=== PATIENT | male | born 1980 | race Caucasian/White ===

== ENCOUNTER 2021-03-31 15:22 | Inpatient (IN) | payer BC, SELFPAY ==
[2021-03-31] VITALS (11 sets, daily range): BP systolic 109–158; BP diastolic 53–107; PULSE 67–106; RESP 12–25; TEMP 36.6–37.3; O2SAT 97–100; BMI 30.7
[2021-03-31 15:57] LABS: Abs Immature Grans 0.06 10^3/uL (0.0-0.06); Absolute Eosinophil Count 0.03 10^3/uL (0.0-0.7); Absolute Lymphocyte Count 0.91 10^3/uL (1.2-3.4); Basophils % 0.3; Eosinophils % 0.2; HCT 48.8 % (40.0-50.0); HGB 17.2 g/dL (13.5-17.5); Immature Grans % 0.4; MCH 30.7 pg (27.0-33.0); MCHC 35.2 % (32.0-36.0); MPV 10.9 fL (8.0-11.0); Monocytes % 4.6; Neutrophils % 88.5; Nucleated RBC 0 %; Platelet Count 219 10^3/uL (130-400); RBC 5.61 10^6/uL (4.36-5.78); RDW 11.8 % (11.8-14.1); RDW-SD 37.3 fL; WBC 15.14 10^3/uL (4.4-10.8)
[2021-03-31 15:58] LABS: Absolute Basophil Count 0.05 10^3/uL (0.0-0.2)
[2021-03-31 15:58] LABS: Bilirubin Small (Negative); Blood Negative (Negative); Clarity Clear (Clear); Glucose Negative (Negative); Ketones >=160 mg/dL (Negative); Leukocyte Esterase Negative (Negative); Nitrite Negative (Negative); Specific Gravity >= 1.030 (1.005-1.025); Urobilinogen 0.2 EU/dL (Up TO 0.2)
--- NOTE | 2021-03-31 16:00 | DI.CT_ITS ---
Exam(s) CT ABDOMEN PELVIS W EXAM: CT ABDOMEN PELVIS W CLINICAL HISTORY: RLQ pain. TECHNIQUE: Imaging Protocol: Axial computed tomography images with coronal and sagittal reformatted images were created and reviewed CONTRAST MATERIAL: Intravenous: Omnipaque 100cc Oral: None COMPARISON: No exams were available for comparison FINDINGS: VISUALIZED LUNG BASES: No nodules nor pleural effusions evident. ABDOMEN: There is no ascites. LIVER: There are no focal hepatic lesions evident . GALLBLADDER/BILIARY: No obvious gallbladder pathology. CBD is not dilated. PANCREAS: No evidence of pancreatic mass nor dilatation of the pancreatic duct. SPLEEN: Spleen is not enlarged. No obvious intrasplenic lesions. Splenic and portal veins are paten t. ADRENALS: There are no significant adrenal masses. KIDNEYS:There is an exophytic cyst off the lateral cortex of the right kidney measuring 1.5 x 1.5 cm. No other significant focal renal findings. No solid renal masses. No calculi nor hydronephrosis.. ABDOMINAL AORTA: Abdominal aorta is not enlarged. LYMPH NODES:There is no retroperitineal nor paraaortic adenopathy. ABDOMINAL WALL: No evidence of significant anterior abdominal wall hernia. GI: There is no evidence of bowel obstruction, free air, nor abscess. However, the transverse colon appears to exhibit possible colitis pattern. PELVIS: GI: The appendix is abnormal. There is an appendicular lith at the junction with the cecum and the a ppendix is distended to a diameter of 12 millimeters.There is mild streaking. There is no abscess. No free air. LYMPH NODES: There is no intrapelvic nor inguinal adenopathy. REPRODUCTIVE: Prostate size upper normal. URINARY BLADDER: No calculi nor obvious masses evident OSSEOUS: No significant osseous lesions. IMPRESSION: 1. Findings are consistent with acute appendicitis. No obvious perforation or abscess at this time. 2. Appearance of the colon may reflect a colitis pattern. However, this appearance can be exaggerate d by the fact that there is no intraluminal oral contrast within the colon. Study 1st read by [facility] RADIATION DOSE DELIVERED: 845.4mGy.cm Total DLP DATA REPOSITORY: All CT scans at this facility are submitted to the National Radiology Data Registry (NRDR) Dose Index Registry (DIR) with the [employer] (A[employer]). RADIATION OPTIMIZATION: All CT scans at this facility use at least one of these dose optimization te chniques: automated exposure control; mA and/or kV adjustment per patient size (includes targeted exa ms where dose is matched to clinical indication); or iterative reconstruction.
--- NOTE | 2021-03-31 16:01 | W.ED.GENAD ---
Discharge Plan Disposition Patient Disposition: [facility] INPATIENT Condition: Stable Discharge Details Chief Complaint: Abd Prob Clinical Impression: Appendicitis Primary Care Provider: Richard Worley ED Provider: Maryanne Birmingham Home Meds and New Rx's Prescriptions: No Action No Known Home Meds RF: 0 Medical Decision Making Patient is a pleasant 40 year old male presenting with c/c of abdominal pain. Pain began around 0900 and has progressively increased. Diminished appetite. No N/V. Temp of 100*F at noon. Took APAP at 1100 without relief. Pepto without relief. No previous abdonimal surgeries. Loose BM today x 1. No change in urinary habits, denies back pain, no testicular pain. On exam, patient appears non toxic. He indicates umbilical area as area of maximal tenderness but pain is elicited over RLQ. Specifically over McBurney's point. Mild discomfort with psoas sign. No CVA tenderness. Concern for appendicitis. Also considered diverticulitis, muscular pain, kidney stone, UTI. Patient is lactointolerent. Had mild products on Tuesday, loose BM Tuesday, this could be residual. Will obtain labs and CT. He declines analgesics at this time. Contacted by radiologist, patient has acute appendicitis. Will contact management professional surgery. Labs significant for white count of 15. Creatinine is elevated at 1.4. No previous for comparison. Patient is receiving hydration. Urinalysis significant for elevated specific gravity and ketones. Patient reports his pain is increasing, will give IV morphine. Discussed these concerns with the patient. Spoke with Dr. Umaña who will come evaluate the patient plan for definitive management of acute appendicitis. Patient reports feeling improved after IV morphine. Patient brought to the OR suite for emergent appendectomy. Patient received IV antibiotics prior to surgical intervention. Patient stable condition HPI General Mode of arrival: ambulatory. Date/Time Provider Initiated Documentation: 03/31/21 15:39. Limitations to Documentation: no limitations. Information obtained by: patient and RN notes reviewed. History of Present Illness 40 year old M presents to the emergency department with the chief complaint of abdominal pain, described as moderate, with intensity rated at 5. Quality is described as aching, and is localized to the abdomen. Patient reports no radiation. Patient started experiencing this hour(s) and it has been constant. No relieving factors improve symptom(s), No exacerbating factors reported . Patient notes diaphoresis, fever/chills (t max 100) and loss of appetite; denies chest pain, cough, headaches, nausea/vomiting, rash, shortness of breath and weakness. Patient did receive the following treatments prior to arrival, other (tylenol) Related Data Home Medications Medication Instructions Recorded Confirmed Unknown [No Known Home Meds] 05/21/20 03/31/21 Allergies Allergy/AdvReac Type Severity Reaction Status Date / Time No Known Allergies Allergy Unverified 03/31/21 15:37 General Stated Complaint: Abd Prob MANGO: 3 Review of Systems Constitutional Constitutional: Reports as per HPI, Denies chills, Denies fatigue, Denies fever(s) and Denies headache(s) ENT Ears, Nose, Mouth, and Throat: Denies headache(s) Cardiovascular Cardiovascular: Reports as per HPI, Denies chest pain and Denies dyspnea Respiratory Respiratory: Reports as per HPI, Denies cough and Denies dyspnea Gastrointestinal Gastrointestinal: Reports as per HPI Genitourinary Genitourinary: Denies system reviewed and no additional complaints, except as documented (patient denies any change in urinary habits) Musculoskeletal Musculoskeletal: Reports as per HPI and Denies back pain Integumentary/Breasts Skin/Breast: Reports as per HPI and Denies rash Neurologic Neurologic: Reports as per HPI and Denies headache(s) Endocrine Endocrine: Denies fatigue [facility] Family History (Updated 05/28/20 @ 17:46 by Deepali Robbins) Mother Depression Father High cholesterol Sister No problems noted. Maternal Grandfather , 82 Alcohol abuse Depression Paternal Grandfather , 57 Alcohol abuse Esophageal cancer Maternal Grandmother Depression Hyperlipidemia Paternal Grandmother No problems noted. Son No problems noted. Social History Smoking/Tobacco Use Status: Never Smoking risk assessment performed?: Yes Alcohol Intake: current Alcohol Intake frequency: 0-2 drinks per day Alcohol type: beer, wine and hard liquor Drug use: Never Substance use type: does not use Caregiver/Support person: No Household members: spouse and children Housing: house Communication Needs: Corrective Lenses Do you need help understanding health information?: Never Pets and animals: Yes Pets and animals: dog(s) Sexually active: Yes Do you think of yourself as: straight/heterosexual Current gender identity: male What is your relationship status?: How often do you talk on the phone with friends or family?: twice per week How often do you get together with friends or relatives?: once per week Do you belong to any clubs or organized social groups?: no Panel score (0-1 are the most socially isolated patients): 2 What type of physical activity do you participate in: none Dulce/Congregation: None Special dulce needs: No Seatbelt use: always Helmet use: Yes Helmet use: always 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 Do you feel safe at home: Yes Do you feel safe in your relationship?: Yes Exam Const General: cooperative, healthy appearing, comfortable, no acute distress and well developed Nutritional Appearance: average body habitus and well nourished Orientation: alert and awake HENSD Head: normal to inspection Mouth: moist mucous membranes Resp Effort & Inspection: normal respiratory effort, able to speak in complete sentences and no respiratory distress Auscultation: clear to auscultation bilaterally, no rales, no rhonchi and no wheezes Cardio Rate: regular rate Rhythm: regular rhythm Heart Sounds: S1 normal and S2 normal GI Inspection: normal to inspection Palpation: soft, no hepatosplenomegaly, not firm, guarding in the RLQ, no pulsatile masses, not rigid, tender in the RLQ and psoas sign positive (minimal pain); with no rebound tenderness and No ascites Percussion: normal to percussion Auscultation: normal bowel sounds Back/Spine/Pelvis Back: no CVA tenderness Skin General skin exam: no rashes or lesions noted Trauma: no lacerations or abrasions Neuro General: patient alert and patient awake Cognition: normal cognition Speech: speech normal Gait: normal gait Psych Appearance: grossly normal and well kempt Mental Status: mental status grossly normal Speech and Movement: speech and movement normal Course Vital Signs Vital signs: Vital Signs Temperature 37.3 C 03/31/21 15:33 Pulse 106 H 03/31/21 15:33 Respiratory Rate 22 03/31/21 15:33 Blood Pressure 154/86 H 03/31/21 15:33 Pulse Oximetry 98 03/31/21 15:33 Temperature 37.3 C 03/31/21 15:33 Temperature Source Oral 03/31/21 15:33 Pulse 106 H 03/31/21 15:33 Respiratory Rate 22 03/31/21 15:33 Respiratory Effort Non-Labored 03/31/21 15:38 Blood Pressure 154/86 H 03/31/21 15:33 Blood Pressure Position Sitting 03/31/21 15:33 Pulse Oximetry 98 03/31/21 15:33 Oxygen Delivery Method Room Air 03/31/21 15:33 Oxygen Flow Rate 0 03/31/21 15:33 Pain Level 5 03/31/21 15:38 Lab/Test Results Lab/Test Results: Laboratory Tests Range/Units 03/31/21 03/31/21 15:48 15:50 WBC (4.4-10.8) 10^3/uL 15.14 H RBC (4.36-5.78) 10^6/uL 5.61 Hgb (13.5-17.5) g/dL 17.2 Hct (40.0-50.0) % 48.8 MCV (80-95) fL 87.0 MCH (27.0-33.0) pg 30.7 MCHC (32.0-36.0) % 35.2 RDW (11.8-14.1) % 11.8 Plt Count (130-400) 10^3/uL 219 MPV (8.0-11.0) fL 10.9 Immature Gran % 0.4 Neutrophils % 88.5 Lymphocytes % 6.0 Monocytes % 4.6 Eosinophils % 0.2 Basophils % 0.3 Nucleated RBC % % 0 Absolute Neutrophils (1.2-6.7) 10^3/uL 13.40 H Absolute Lymphocytes (1.2-3.4) 10^3/uL 0.91 L Absolute Monocytes (0.1-0.8) 10^3/uL 0.70 Absolute Eosinophils (0.0-0.7) 10^3/uL 0.03 Absolute Basophils (0.0-0.2) 10^3/uL 0.05 Urine Color (Yellow) Yellow Urine Clarity (Clear) Clear Urine pH (5-8) 6.0 Ur Specific [place] (1.005-1.025) >= 1.030 H Urine Protein (Negative) mg/dL Negative Urine Ketones (Negative) mg/dL >=160 H Urine Blood (Negative) Negative Urine Nitrite (Negative) Negative Urine Bilirubin (Negative) Small H Urine Urobilinogen (Up TO 0.2) EU/dL 0.2 Ur Leukocyte Esterase (Negative) Negative Urine Glucose (Negative) mg/dL Negative
[2021-03-31 16:08] LABS: ALT 18 U/L (16-63); AST 16 U/L (15-37); Albumin 4.4 g/dL (3.4-5.0); Alkaline Phosphatase 66 U/L (46-116); Anion Gap 9.9 mmol/L (3-11); BUN 17 mg/dL (7-18); Bilirubin, Total 1.1 mg/dL (0.2-1.0); CO2 28.1 mmol/L (21.0-32.0); CREATININE 1.4 mg/dL (0.70-1.30); Calcium 9.1 mg/dL (8.5-10.1); Chloride 104 mmol/L (98-107); Estimated GFR 56.42 (mL/min/1.73m2); Glucose 107 mg/dL (74-106); Lipase 65 U/L (73-393); Potassium 4.2 mmol/L (3.5-5.1); Sodium 142 mmol/L (136-145); Total Protein 7.9 g/dL (6.4-8.2)
[2021-03-31] MEDS: Lactated Ringers 1,000 ML 1000 ML IV (17:17)
--- NOTE | 2021-03-31 17:55 | DI.VRAD_ITS ---
Addendum created by Mary Pittman MD on 03/31/2021 5:58:56 PM EDT: THIS REPORT CONTAINS FINDINGS THAT MAY BE CRITICAL TO PATIENT CARE. The pertinent findings were verbally communicated via telephone conference with TIGIST FARAH at 17:58 EDT on 03/31/2021. The findings were acknowledged and understood. Initial report created on 03/31/2021 5:55:05 PM EDT: PROCEDURE INFORMATION: Exam: CT Abdomen And Pelvis With Contrast Exam date and time: 03/31/2021 16:15 Age: 40 years old Clinical indication: Abdominal pain; Patient HX: Right lower quadrant pain since this am TECHNIQUE: Imaging protocol: Computed tomography of the abdomen and pelvis with contrast. Radiation optimization: All CT scans at this facility use at least one of these dose optimization techniques: automated exposure control; mA and/or kV adjustment per patient size (includes targeted exams where dose is matched to clinical indication); or iterative reconstruction. Contrast material: OMNIPAQUE; Contrast volume: 100 ml; Contrast route: INTRAVENOUS (IV); COMPARISON: No relevant prior studies available. FINDINGS: Liver: No mass. Gallbladder and bile ducts: No calcified stones. No ductal dilation. Pancreas: No ductal dilation. No masses. Spleen: No splenomegaly or focal lesions. Adrenal glands: No mass. Kidneys and ureters: Benign-appearing right renal cyst. No renal masses or hydronephrosis bilaterally. Stomach and bowel: No obstruction. No mucosal thickening. Appendix: Acute appendicitis. There is a proximal appendiceal calculus as well as an additional appendiceal stone. Distal to this the appendix is distended to 13 mm in demonstrates mild mucosal hyperemia and appendiceal wall thickening. The tip of the appendix is decompressed. Trace inflammatory changes around the distended portion of the appendix. Intraperitoneal space: No free air. No significant fluid collection. Vasculature: No abdominal aortic aneurysm. Lymph nodes: No significantly enlarged lymph nodes. Urinary bladder: The urinary bladder is distended. No urinary bladder wall thickening. Reproductive: Unremarkable as visualized. Bones/joints: No acute fracture. Soft tissues: No suspicious lesions. IMPRESSION: Acute appendicitis. No perforation or abscess. Dictated and Authenticated by: Mary Pittman MD. Ordering:GRAYSON Madden MD
--- NOTE | 2021-03-31 18:07 | HPE_ITS ---
Date of service: 03/31/21 Time of Service: 18:07 Assessment and Plan Assessment and plan (1) Appendicitis: Status: Acute Assessment and plan: Informed consent is obtained for the procedural (explained in simple layman's terms that the pt and/or family could understand) explaining risks vs benefits and alternatives to the procedure and consequences if we do not do the procedure. Risks include but are not limited to:bleeding,infections, pneumonia, blood clots/DVT/PE, anesthesia(aspiration, damage to teeth/airway/[place]/CVA//prolonged mechanical ventilation/PTX/IV infections), damage to bowel, bladder,blood vessels, ureters. Leakage from anastomosis requiring colostomy. hernias or wound complictions. Wound infections requiring further surgery. Scarring and disfigurement. Subsequent bowel obstructions from scar tissue. Possible open procedure if minimally invasive procedure is being attempted. This document was created using [employer] activated software and may contain errors History of Present Illness Consults Consult date: 03/31/21 Narrative: Patient has been in a normal state of good health. He woke up at 8 AM. He ate breakfast. Driving to work he noted that the bumps on the thyroid hurt. He developed nausea and low-grade temp throughout the course of the day. Came home from work at noon. He developed pain that is settled in the right lower quadrant with associated nausea. Tuesday he had a stool that was on the diarrheal side. He did have some dairy products and he is lactose intolerant. He has never had anything like this before. He has no history of GI problems. No one else at home is ill. He has not been traveling or camping. He had the change in Covid vaccine in January. Currently he has associated right lower quadrant pain with tenderness. Is localized. No radiation. No rebound. Previous surgery is ear tubes as a child. Circumcision as an adult. [place] teeth. He had no problems with anesthesia. He is a non-smoker. Underwent no known drug allergies. He denies a history of asthma, diabetes, seizures or heart disease. There is no family history of anesthetic complications. MPRESSION: Acute appendicitis. No perforation or abscess. Review of Systems All systems reviewed & are unremarkable except as noted in HPI and below PFSH Family History (Updated 05/28/20 @ 17:46 by Deepali Jaxson-Lescault) Mother Depression Father High cholesterol Sister No problems noted. Maternal Grandfather , 82 Alcohol abuse Depression Paternal Grandfather , 57 Alcohol abuse Esophageal cancer Maternal Grandmother Depression Hyperlipidemia Paternal Grandmother No problems noted. Son No problems noted. Social History Smoking/Tobacco Use Status: Never Smoking risk assessment performed?: Yes Alcohol Intake: current Alcohol Intake frequency: 0-2 drinks per day Alcohol type: beer, wine and hard liquor Drug use: Never Substance use type: does not use Caregiver/Support person: No Household members: spouse and children Housing: house Communication Needs: Corrective Lenses Do you need help understanding health information?: Never Pets and animals: Yes Pets and animals: dog(s) Sexually active: Yes Do you think of yourself as: straight/heterosexual Current gender identity: male What is your relationship status?: How often do you talk on the phone with friends or family?: twice per week How often do you get together with friends or relatives?: once per week Do you belong to any clubs or organized social groups?: no Panel score (0-1 are the most socially isolated patients): 2 What type of physical activity do you participate in: none Dulce/Muslim: None Special dulce needs: No Seatbelt use: always Helmet use: Yes Helmet use: always Drive intox or ride w/intox sales route driver helper: No Do you feel safe at home: Yes Do you feel safe in your relationship?: Yes Meds Allergies and Home Medications Allergies Allergy/AdvReac Type Severity Reaction Status Date / Time No Known Allergies Allergy Unverified 03/31/21 15:37 Home Medications Medication Instructions Recorded Confirmed Type Unknown [No Known Home Meds] 05/21/20 03/31/21 History Exam Const General: cooperative, healthy appearing, comfortable, no acute distress, well developed and well groomed Nutritional Appearance: average body habitus and well nourished Orientation: alert, awake and oriented x3 HENMT Head: normal to inspection, normocephalic and atraumatic Ears: hearing grossly normal bilaterally and external ears normal General nose exam: external nose normal Face and sinus: normal facial exam and sinuses nontender Mouth: oral mucosae normal, lip normal, tongue normal and moist mucous membranes Teeth and gingiva: dentition normal Eyes General: appearance normal, both eyes and all related structures Conjunctivae: conjunctivae normal Sclera: sclerae normal Pupils: PERRL Neck Neck: normal visual inspection and full ROM Chest Chest: normal inspection of the chest Resp Effort & Inspection: normal respiratory effort, able to speak in complete sentences, no cough, no nasal flaring, not tachypneic and no use of accessory muscles Auscultation: clear to auscultation bilaterally, no rales, no rhonchi and no wheezes Cardio Jugular venous pressure: no JVD Rate: regular rate Rhythm: regular rhythm GI Inspection: normal to inspection, no edema and non-distended Palpation: soft, no masses, tender in the RLQ and with rebound tenderness and No ascites Auscultation: normal bowel sounds Other: No umbilical hernias or surgical scars. Skin General skin exam: no rashes or lesions noted Trauma: no lacerations or abrasions Neuro General: patient alert, patient oriented x3, oriented, gait normal, moves all extremities, no focal motor deficits and CN's II-XI intact bilaterally Cognition: normal cognition Speech: speech normal Gait: normal gait Motor: muscle tone normal throughout Extrem General: normal to inspection, full ROM and no clubbing, cyanosis or edema Psych Appearance: grossly normal and well kempt Mental Status: mental status grossly normal Speech and Movement: speech and movement normal Affect: normal affect Results Labs Result diagrams: 03/31/21 15:50 03/31/21 15:50 Labs: Laboratory Results - last 24 hr 03/31/21 03/31/21 03/31/21 15:48 15:50 15:50 WBC 15.14 H RBC 5.61 Hgb 17.2 Hct 48.8 MCV 87.0 MCH 30.7 MCHC 35.2 RDW 11.8 Plt Count 219 MPV 10.9 Immature Gran % 0.4 Neutrophils % 88.5 Lymphocytes % 6.0 Monocytes % 4.6 Eosinophils % 0.2 Basophils % 0.3 Nucleated RBC % 0 Absolute Neutrophils 13.40 H Absolute Lymphocytes 0.91 L Absolute Monocytes 0.70 Absolute Eosinophils 0.03 Absolute Basophils 0.05 Sodium 142 Potassium 4.2 Chloride 104 Carbon Dioxide 28.1 Anion Gap 9.9 BUN 17 Creatinine 1.4 H Estimated GFR/1.73 m2 56.42 Glucose 107 H Calcium 9.1 Total Bilirubin 1.1 H AST 16 ALT 18 Alkaline Phosphatase 66 Total Protein 7.9 Albumin 4.4 Lipase 65 Urine Color Yellow Urine Clarity Clear Urine pH 6.0 Ur Specific [place] >= 1.030 H Urine Protein Negative Urine Ketones >=160 H Urine Blood Negative Urine Nitrite Negative Urine Bilirubin Small H Urine Urobilinogen 0.2 Ur Leukocyte Esterase Negative Urine Glucose Negative Last Vital Signs Temp 37.3 C 03/31/21 15:33 Pulse 67 03/31/21 17:22 Resp 20 03/31/21 17:22 BP 128/80 03/31/21 17:22 Pulse Ox 98 03/31/21 17:22 COVID-19 Screening Have you, or household traveled for leisure in last 14 days?: No Had IN PERSON contact w/suspected or confirmed C-19 person: No
[2021-03-31 18:30] LABS: Source Nasal/Nares
[2021-03-31] MEDS: PIPERACILLIN/TAZO 3.375 GM in Normal Saline 50 ML IVPB (18:32)
--- NOTE | 2021-03-31 18:51 | ANES.PREOP_ITS ---
General Info Date of Service Date Performed: 03/31/21 Height: 5 ft 6 in Weight: 86.183 kg Body Mass Index (BMI): 30.7 Surgical Procedure: Operation Date: 03/31/21 19:00 Proposed Procedures Side Surgeon p Appendectomy Laparoscopic Dunia Umaña, DO Meds Allergies and Home Medications Allergies Allergy/AdvReac Type Severity Reaction Status Date / Time No Known Allergies Allergy Unverified 03/31/21 15:37 Home Medication Medication Instructions Recorded Unknown [No Known Home Meds] 05/21/20 Current Visit Medications: Current Medications Generic Name Dose Route Start Last Admin Trade Name Freq PRN Reason Stop Dose Admin Piperacillin Sod/Tazobactam 50 mls @ 100 mls/hr 03/31/21 18:11 03/31/21 18:32 Sod 3.375 gm/ Sodium Chloride IVPB 03/31/21 18:40 100 mls/hr NOW ONE Administration Protocol IV Miscellaneous Supplies 1 each 03/31/21 15:45 Iv Access IV DIRECTED [facility] Active Problems Active Problems: Problem Status Onset Code Appendicitis K37 Tobacco Smoking/Tobacco Use Status: Never Passive smoking exposure: Yes Alcohol Alcohol Intake: current Alcohol intake frequency: 0-2 drinks per day Alcohol type: beer, wine and hard liquor Substance Use Substance use: Never Substance use type: does not use Vital Signs and Lab Results Vital Signs Most Recent Vital Signs in EMR: Most Recent Vital Signs Temp Pulse Resp BP Pulse Ox 37.2 C 73 16 131/87 97 03/31/21 18:32 03/31/21 18:32 03/31/21 18:32 03/31/21 18:32 03/31/21 18:32 Lab Results Result Diagrams: 03/31/21 15:50 03/31/21 15:50 Blood Type / Crossmatch: No Data to Display Complete Blood Count: White Blood Count 15.14 10^3/uL (4.4-10.8) H 03/31/21 15:50 03/31/21 Red Blood Count 5.61 10^6/uL (4.36-5.78) 03/31/21 15:50 03/31/21 Hemoglobin 17.2 g/dL (13.5-17.5) 03/31/21 15:50 03/31/21 Hematocrit 48.8 % (40.0-50.0) 03/31/21 15:50 03/31/21 Platelet Count 219 10^3/uL (130-400) 03/31/21 15:50 03/31/21 Complete Metabolic Panel: Sodium Level 142 mmol/L (136-145) 03/31/21 15:50 03/31/21 Potassium Level 4.2 mmol/L (3.5-5.1) 03/31/21 15:50 03/31/21 Chloride Level 104 mmol/L (98-107) 03/31/21 15:50 03/31/21 Carbon Dioxide Level 28.1 mmol/L (21.0-32.0) 03/31/21 15:50 03/31/21 Blood Urea Nitrogen 17 mg/dL (7-18) 03/31/21 15:50 03/31/21 Creatinine 1.4 mg/dL (0.70-1.30) H 03/31/21 15:50 03/31/21 Calcium Level 9.1 mg/dL (8.5-10.1) 03/31/21 15:50 03/31/21 Albumin 4.4 g/dL (3.4-5.0) 03/31/21 15:50 03/31/21 Glucose Level 107 mg/dL (74-106) H 03/31/21 15:50 03/31/21 Liver Function Panel: Alanine Aminotransferase (ALT/SGPT) 18 U/L (16-63) 03/31/21 15:50 03/31/21 Aspartate Amino Transf (AST/SGOT) 16 U/L (15-37) 03/31/21 15:50 03/31/21 Coagulation Panel: No Data to Display Cardiac Panel: No Data to Display Arterial Blood Gas: No Data to Display Venous Blood Gas: No Data to Display Pancreas Panel: Lipase 65 U/L (73-393) 03/31/21 15:50 03/31/21 Thyroid Panel: No Data to Display Infectious Disease: Coronavirus (COVID-19)(PCR) Pending 03/31/21 18:25 03/31/21 Coronavirus 2019 Source Nasal/nares 03/31/21 18:25 03/31/21 Blood Cultures: No Data to Display Toxicology Panel: No Data to Display Anesthesia Assessment and Plan Anesthesia History Personal History: No History of Anesthesia Complications Family History: No Family History of Anesthesia Complications Exercise Tolerance Exercise Tolerance: Metabolic Equivalents>4 Pertinent Negatives Pertinent Negatives: No Symptoms of GERD, No Major Cardiovascular Symptoms or Complaints, No Major Pulmonary Symptoms or Complaints and No History of CVA/TIA Cardiac & Pulmonary Exam Cardiac Exam: Normal S1/S2 Heart Sounds Pulmonary Exam: Clear Bilateral Breath Sounds Airway Exam Known Difficult Airway: No Mallampati Class: 1 Mouth Opening: Normal (> 3cm) Thyromental Distance: Greater than 3 cm Neck Range of Motion: Full ROM Neck Circumference: Normal Teeth Condition: Normal Dentition Airway Comments: ?13 and 4 are crowns? ASA Classification ASA Score: ASA 2 Emergency Case?: Yes NPO Status NPO Status: NPO Clears >2 hours, Solids >8 hours Anesthesia Plan Resuscitation Status: Full Code Anesthesia Technique: General Anesthesia Airway Planned: Endotracheal Tube Monitors Used: Standard Monitors
[2021-03-31] MEDS: Omnipaque 350 MG/ML 100 ML BTL IV (18:57)
[2021-03-31] MEDS: Normal Saline - Diluent 50 ML VIAL IV (18:58)
--- NOTE | 2021-03-31 19:22 | W.PM.OP ---
Date of service: 03/31/21 Time of Service: 19:22 Operative Note Operative Note DATE OF PROCEDURE: 03/31/21 PRE-OP DIAGNOSIS: acute appendicitis POST-OP DIAGNOSIS: same PROCEDURE: ailyn kimy SURGEON: Malinda Araya PERSONALIZED LIVING ASSISTANT: Ania Pat ANESTHESIA TYPE: Local By Surgeon and General LMA/ETT Refer to Anesthesia Record ESTIMATED BLOOD LOSS: 5 COMPLICATIONS: None Patient was transported to: PACU Patient's condition: stable Procedure Description: COMPLICATIONS: The patient tolerated the procedure well without complications. INDICATIONS: The patient has signs and symptoms compatible with acute appendicitis and is brought to the OR for laparoscopic appendectomy, possible open procedure. Informed consent is obtained for the procedural (explained in simple layman's terms that the pt and/or family could understand) explaining risks vs benefits and alternatives to the procedure and consequences if we do not do the procedure. Risks include but are not limited to:bleeding,infections, pneumonia, blood clots/DVT/PE, anesthesia(aspiration, damage to teeth/airway/[place]/CVA//prolonged mechanical ventilation/PTX/IV infections), damage to bowel, bladder,blood vessels, ureters. Damage to solid organs requiring removal. Infertility. Leakage from anastomosis requiring colostomy. Wound infections requirng further surgery. Scarring and disfigurement. Subsequent bowel obstructions from scar tissue. Possible open procedure if minimaly invsive procedure is being attempted. Abscess and stump appendicitis as well as others. DESCRIPTION OF PROCEDURE: The patient was brought to the operating room suite and placed in supine position. Anesthesia was administered per the Department of Anesthesia. A Echeverria catheter and OG tube are placed. The patient was prepped and draped in the usual sterile fashion using ChloraPrep scrub solution. Pause for the cause was done. 30 mL of 1% buffered was used for local anesthetization. A stab incision was made in the umbilicus and the Veress was inserted. Drop test was positive and insufflation was begun. When 15 mm of pressure was noted on the monitor, the Veress was removed, a #5 port inserted. Camera inserted through the port shows no damage to underlying structures. Bowel, liver and stomach that are visualized are normal in appearance. Pelvic organs are not visualized. The appendix is inflamed, erythematous,enlarged, & distened, but does not appear to have been ruptured. There is no purulent drainage in the pelvis. It is not adhered to any adjacent structures. A 12 mm port was then placed in the suprapubic position under direct visualization following creation of a local field block as well as a second 5 mm port in the LLQ. The appendix is elevated and a rent dissected into the mesentery. The base of the appendix is healthy and will hold gary. A Endo-MARIA DEL ROSARIO stapler is placed across the base of the appendix and fired and 2nd stapler placed across the mesentery and fired. The appendix is placed in a bag and brought out. There is no bleeding or enteric leakage from the staple lines. The pt does not require a drain. The abdomen was copiously irrigated with a liter of saline. All saline is evacuated. The scope and ports are removed. Pneumoperitoneum is evacuated. The fascia under the 12 mm port is closed with 0 Vicryl. There was no bleeding from the port sites as when they removed and the pneumoperitoneum evacuated. The wounds were copiously irrigated and closed in 2 layers with 4-0 Monocryl. Skin glue is used. Sterile dressings are applied. The patient tolerated the procedure without complication, transferred to the recovery room in stable condition. Family was apprised of patient condition. The patient can be discharged home later today. MALINDA ARAYA
[2021-03-31 19:24] LABS: COVID-19 PCR Negative (Negative)
[2021-03-31] MEDS: Lactated Ringers 1,000 ML 75 ML IV (19:30)
[2021-03-31] MEDS: Bupivacaine 0.5% Pres-Free 30 ML VIAL (20:00)
--- NOTE | 2021-03-31 20:10 | APP_PTH ---
PATIENT: Chase Bernard LOC: U#:[id number] AGE/SX: 40/M [facility]: Dunia Umaña : 1980 BED: A DIS: 04/01/2021 SPEC #: [id number] RECD: 04/01/21 12:51 STATUS: DINESH REQ #: [id number] MODESTA: 03/31/21 20:[address]: Dunia Umaña DEPT: Surgical Specimen RECD BY: Radha Spear ENTERED: 04/01/21 12:52 SP TYPE: Appendix OTHR DR: Richard Worley MD Tissues: 1 - APPENDIX NOT INCIDENTAL Procedures: GROSS AND MICRO LEVEL 3 Comments: [id number]
--- NOTE | 2021-03-31 21:12 | ROE_ITS ---
Date of service: 03/31/21 Time of Service: 21:13 Operative Note Operative Note DATE OF PROCEDURE: 03/31/21 POST-OP DIAGNOSIS: same PROCEDURE: lap appy MOLD FORMS BUILDER: Ania Pat Refer to Anesthesia Record Implants: lap appy Procedure Description: COMPLICATIONS: The patient tolerated the procedure well without complications. INDICATIONS: The patient has signs and symptoms compatible with acute appendicitis and is brought to the OR for laparoscopic appendectomy, possible open procedure. Informed consent is obtained for the procedural (explained in simple layman's terms that the pt and/or family could understand) explaining risks vs benefits and alternatives to the procedure and consequences if we do not do the procedure. Risks include but are not limited to:bleeding,infections, pneumonia, blood clots/DVT/PE, anesthesia(aspiration, damage to teeth/airway/[place]/ CVA//prolonged mechanical ventilation/PTX/IV infections), damage to bowel, bladder,blood vessels, ureters. Damage to solid organs requiring removal. Infertility. Leakage from anastomosis requiring colostomy. Wound infections requirng further surgery. Scarring and disfigurement. Subsequent bowel obstructions from scar tissue. Possible open procedure if minimaly invsive procedure is being attempted. Abscess and stump appendicitis as well as others. DESCRIPTION OF PROCEDURE: The patient was brought to the operating room suite and placed in supine position. Anesthesia was administered per the Department of Anesthesia. A Echeverria catheter and OG tube are placed. The patient was prepped and draped in the usual sterile fashion using ChloraPrep scrub solution. Pause for the cause was done. 30 mL of 1% buffered was used for local anesthetization. A stab incision was made in the umbilicus and the Veress was inserted. Drop test was positive and insufflation was begun. When 15 mm of pressure was noted on the monitor, the Veress was removed, a #5 port inserted. Camera inserted through the port shows no damage to underlying structures. Bowel, liver and stomach that are visualized are normal in appearance. Pelvic organs are not visualized. The appendix is inflamed, erythematous,enlarged, & distened, but does not appear to have been ruptured. There is no purulent drainage in the pelvis. It is not adhered to any adjacent structures. A 12 mm port was then placed in the suprapubic position under direct visualization following creation of a local field block as well as a second 5 mm port in the LLQ. The appendix is elevated and a rent dissected into the mesentery. The base of the appendix is healthy and will hold gary. A Endo-MARIA DEL ROSARIO stapler is placed across the base of the appendix and fired and 2nd stapler placed across the mesentery and fired. The appendix is placed in a bag and brought out. There is no bleeding or enteric leakage from the staple lines. The pt does not require a drain. The abdomen was copiously irrigated with a liter of saline. All saline is evacuated. The scope and ports are removed. Pneumoperitoneum is evacuated. The fascia under the 12 mm port is closed with 0 Vicryl. There was no bleeding from the port sites as when they removed and the pneumoperitoneum evacuated. The wounds were copiously irrigated and closed in 2 layers with 4-0 Monocryl. Skin glue is used. Sterile dressings are applied. The patient tolerated the procedure without complication, transferred to the recovery room in stable condition. Family was apprised of patient condition. The patient can be discharged home later today. MALINDA ARAYA, DO
--- NOTE | 2021-03-31 21:14 | PGE_ITS ---
Date of Service Date of service: 03/31/21 Time of Service: 21:15 Assessment and Plan Assessment and plan (1) Appendicitis: Status: Acute Assessment and plan: The patient is doing well post-op. Their pain is well controlled. They are having no nausea or vomiting. The pt is not having any chest pain or SOB, productive cough; no calf pain or swelling. The pt is making good urine. The pt pain is adequately controlled. The case was discussed with nursing and patient?s progress reviewed. All of the pt's home medications were addressed and adjusted accordingly for their oral intact status. HEENT: no jaundice. no eye pain/drainage/redness/swelling. Mild sore throat Cardio- NSR no chest pain, BP stable. Pulm: no sob or productive cough. no hemoptysis Incision- clean/dry. Dressing intact no excessive bleeding or drainage I discussed with the patient and/or there family about the findings in surgery and the pt's progress. We reviewed expectations for progress in the hospital; what the pt could expect for recovery time and length of stay. We discussed the importance of walking and pulmonary toilet to avoid blood clots and pneumonia. Continue current plans for pulmonary toilet, GI and DVT prophylaxis. We shall continue the current plan for pain management as it is at an appropriate level, and working well for the pt. Appropriate measures will be taken for constipation prevention, and this was also reviewed with the pt. The wound care plan was reviewed with nursing as well. should eb able to d/c home in am w/ . off of work x1 week. see orders Objective Last Vital Signs Temp 37.2 C 03/31/21 21:07 Pulse 95 H 03/31/21 21:07 Resp 24 03/31/21 21:07 BP 143/102 H 03/31/21 21:07 Pulse Ox 98 03/31/21 21:07 Laboratory Results - last 24 hr 03/31/21 03/31/21 03/31/21 15:48 15:50 15:50 WBC 15.14 H RBC 5.61 Hgb 17.2 Hct 48.8 MCV 87.0 MCH 30.7 MCHC 35.2 RDW 11.8 Plt Count 219 MPV 10.9 Immature Gran % 0.4 Neutrophils % 88.5 Lymphocytes % 6.0 Monocytes % 4.6 Eosinophils % 0.2 Basophils % 0.3 Nucleated RBC % 0 Absolute Neutrophils 13.40 H Absolute Lymphocytes 0.91 L Absolute Monocytes 0.70 Absolute Eosinophils 0.03 Absolute Basophils 0.05 Sodium 142 Potassium 4.2 Chloride 104 Carbon Dioxide 28.1 Anion Gap 9.9 BUN 17 Creatinine 1.4 H Estimated GFR/1.73 m2 56.42 Glucose 107 H Calcium 9.1 Total Bilirubin 1.1 H AST 16 ALT 18 Alkaline Phosphatase 66 Total Protein 7.9 Albumin 4.4 Lipase 65 Urine Color Yellow Urine Clarity Clear Urine pH 6.[address] [place] >= 1.030 H Urine Protein Negative Urine Ketones >=160 H Urine Blood Negative Urine Nitrite Negative Urine Bilirubin Small H Urine Urobilinogen 0.2 Ur Leukocyte Esterase Negative Urine Glucose Negative COVID-19 Source SARS-CoV-2 (PCR) 03/31/21 18:25 WBC RBC Hgb Hct MCV MCH MCHC RDW Plt Count MPV Immature Gran % Neutrophils % Lymphocytes % Monocytes % Eosinophils % Basophils % Nucleated RBC % Absolute Neutrophils Absolute Lymphocytes Absolute Monocytes Absolute Eosinophils Absolute Basophils Sodium Potassium Chloride Carbon Dioxide Anion Gap BUN Creatinine Estimated GFR/1.73 m2 Glucose Calcium Total Bilirubin AST ALT Alkaline Phosphatase Total Protein Albumin Lipase Urine Color Urine Clarity Urine pH Ur Specific [place] Urine Protein Urine Ketones Urine Blood Urine Nitrite Urine Bilirubin Urine Urobilinogen Ur Leukocyte Esterase Urine Glucose COVID-19 Source Nasal/nares SARS-CoV-2 (PCR) Negative
[2021-03-31] MEDS: traMADol 50 MG TAB PO (22:03)
[2021-04-01] MEDS: Normal Saline Flush 10 ML SYR IVP ×5 (00:47→15:21)
[2021-04-01] MEDS: MORPHine 2 MG/ML SYR IVP ×2 (00:47→16:55)
[2021-04-01] MEDS: Normal Saline 1,000 ML 100 ML IV (00:48)
[2021-04-01] MEDS: Ketorolac 15 MG/ML VIAL IVP ×3 (01:37→15:21)
[2021-04-01 03:21] VITALS: BP 113/72; PULSE 93; RESP 20; TEMP 36.9; O2SAT 97
[2021-04-01] MEDS: ACETAMINOPHEN 1,000 MG/100 ML BTL 400 MG IVPB ×2 (04:49→12:33)
[2021-04-01 07:46] VITALS: BP 113/78; PULSE 78; RESP 16; TEMP 36.8; O2SAT 97
--- NOTE | 2021-04-01 08:47 | W.ANESPOSTOP ---
Postoperative Evaluation Date, Time and Location Date Performed: 04/01/21 Time Performed: 08:24 Patient Location: Med/Surg Vital Signs Most Recent Imported Vital Signs: Most Recent Vital Signs Temp Pulse Resp BP Pulse Ox 36.8 C 78 16 113/78 97 04/01/21 07:46 04/01/21 07:46 04/01/21 07:46 04/01/21 07:46 04/01/21 07:46 Pain Score Most Recent Pain Score: Most Recent Pain Score Pain Level 4 04/01/21 07:46 Assessment Mental Status: Awake (Alert & Oriented to Patient Baseline) Airway and Respiratory Function: Patent airway with normal (patient baseline) respiratory exam Cardiovascular Function: Hemodynamically Stable Hydration Status: Adequately Hydrated Nausea & Vomiting: No Nausea or Vomiting Pain: Pain is Moderate or Severe Postoperative Pain Management: Ongoing pain, patient will be managed as an inpatient Peripheral Nerve Block: Patient did not receive a nerve block Postoperative Comments:: Difficulty passing gas.Discussed importance of ambulation and fluid intake.
--- NOTE | 2021-04-01 09:00 | W.PM.PROGNOT ---
Date of Service Date of service: 04/01/21 Time of Service: 09:00 Assessment and Plan Assessment and plan (1) Appendicitis: Status: Acute Assessment and plan: s/p lap appy encourage ambulation and iceing. hopfeully d/c home later today Subjective Subjective Interval history since last seen: no headaches. No CP or SOB. no productive cough. no dysuria. no leg pain or swelling. pt c/o nausea and abdominal pain. He has been up walking and tolerating clears. minimal urine ouput. Exam Const General: cooperative, healthy appearing, comfortable, no acute distress, well developed and well groomed Nutritional Appearance: average body habitus and well nourished Orientation: alert, awake and oriented x3 HENMT Head: normal to inspection, normocephalic and atraumatic Ears: hearing grossly normal bilaterally and external ears normal General nose exam: external nose normal Face and sinus: normal facial exam and sinuses nontender Mouth: oral mucosae normal, lip normal, tongue normal and moist mucous membranes Teeth and gingiva: dentition normal Eyes General: appearance normal, both eyes and all related structures Conjunctivae: conjunctivae normal Sclera: sclerae normal Pupils: PERRL Neck Neck: normal visual inspection and full ROM Chest Chest: normal inspection of the chest Resp Effort & Inspection: normal respiratory effort, able to speak in complete sentences, no cough, no nasal flaring, not tachypneic and no use of accessory muscles Auscultation: clear to auscultation bilaterally, no rales, no rhonchi and no wheezes Cardio Jugular venous pressure: no JVD Rate: regular rate Rhythm: regular rhythm GI Inspection: normal to inspection, no edema, non-distended and incision (c/c/i no R/D/S ) Palpation: soft, no masses, nontender and No ascites Auscultation: normal bowel sounds Skin General skin exam: no rashes or lesions noted Trauma: no lacerations or abrasions Neuro General: patient alert, patient oriented x3, oriented, gait normal, moves all extremities, no focal motor deficits and CN's II-XI intact bilaterally Cognition: normal cognition Speech: speech normal Gait: normal gait Motor: muscle tone normal throughout Extrem General: normal to inspection, full ROM and no clubbing, cyanosis or edema Psych Appearance: grossly normal and well kempt Mental Status: mental status grossly normal Speech and Movement: speech and movement normal Affect: normal affect Objective Last Vital Signs Temp 36.8 C 04/01/21 07:46 Pulse 78 04/01/21 07:46 Resp 16 04/01/21 07:46 BP 113/78 04/01/21 07:46 Pulse Ox 97 04/01/21 07:46 Laboratory Results - last 24 hr 03/31/21 03/31/21 03/31/21 15:48 15:50 15:50 WBC 15.14 H RBC 5.61 Hgb 17.2 Hct 48.8 MCV 87.0 MCH 30.7 MCHC 35.2 RDW 11.8 Plt Count 219 MPV 10.9 Immature Gran % 0.4 Neutrophils % 88.5 Lymphocytes % 6.0 Monocytes % 4.6 Eosinophils % 0.2 Basophils % 0.3 Nucleated RBC % 0 Absolute Neutrophils 13.40 H Absolute Lymphocytes 0.91 L Absolute Monocytes 0.70 Absolute Eosinophils 0.03 Absolute Basophils 0.05 Sodium 142 Potassium 4.2 Chloride 104 Carbon Dioxide 28.1 Anion Gap 9.9 BUN 17 Creatinine 1.4 H Estimated GFR/1.73 m2 56.42 Glucose 107 H Calcium 9.1 Total Bilirubin 1.1 H AST 16 ALT 18 Alkaline Phosphatase 66 Total Protein 7.9 Albumin 4.4 Lipase 65 Urine Color Yellow Urine Clarity Clear Urine pH 6.0 Ur Specific [place] >= 1.030 H Urine Protein Negative Urine Ketones >=160 H Urine Blood Negative Urine Nitrite Negative Urine Bilirubin Small H Urine Urobilinogen 0.2 Ur Leukocyte Esterase Negative Urine Glucose Negative COVID-19 Source SARS-CoV-2 (PCR) 03/31/21 18:25 WBC RBC Hgb Hct MCV MCH MCHC RDW Plt Count MPV Immature Gran % Neutrophils % Lymphocytes % Monocytes % Eosinophils % Basophils % Nucleated RBC % Absolute Neutrophils Absolute Lymphocytes Absolute Monocytes Absolute Eosinophils Absolute Basophils Sodium Potassium Chloride Carbon Dioxide Anion Gap BUN Creatinine Estimated GFR/1.73 m2 Glucose Calcium Total Bilirubin AST ALT Alkaline Phosphatase Total Protein Albumin Lipase Urine Color Urine Clarity Urine pH Ur Specific [place] Urine Protein Urine Ketones Urine Blood Urine Nitrite Urine Bilirubin Urine Urobilinogen Ur Leukocyte Esterase Urine Glucose COVID-19 Source Nasal/nares SARS-CoV-2 (PCR) Negative
--- NOTE | 2021-04-01 09:03 | DSE_ITS ---
Date of service: 04/01/21 Time of Service: 09:03 DS: Diagnosis Discharge Diagnosis (1) Appendicitis: Status: Acute Discharge Plan Disposition Condition: Stable Discharge Details Reason For Visit: Acute Appy Admit Date/Time: 03/31/21 21:06 Admit Provider: Dunia Umaña Attending Provider: Dunia Umaña Primary Care Provider: Richard Worley [facility] Course Hospital Course: Patient underwent a laparoscopic appendectomy. Please see operative report for details of the procedure. Patient was admitted overnight for postoperative c are. Today he is ambulatory. Is tolerating a soft diet. His incisions are clean dry and intact. His lungs are clear to auscultation. His lower extremities show no swelling or edema. He is discharged home in stable satisfactory condition. Please see the discharge notes. Home Meds and New Rx's Prescriptions: New metaxalone [Skelaxin] 800 mg tablet 800 mg PO QID PRN (Reason: muscle spasms) Qty: 30 RF: 0 tramadol [Ultram] 50 mg tablet 50 mg PO Q6H PRNQty: 14 RF: 0 Discharge Instructions Additional Instructions: Care after Surgery -You should walk frequently, gradually, increasing the distance. You may climb stairs, just go slowly. -MEDICATIONS: For the first 72 hours after surgery, alternate Tylenol 1000mg by mouth every 8 hours and Ibuprofen 600mg every 6 hours. Make sure you take ibuprofen with food and not on an empty stomach. Take the Tylenol and ibuprofen continuously for the first 72hrs- not just when you have pain. Use the tramadol for breakthrough pain. You also have a prescription for skelaxin for muscle spasms. Use ICE! Twenty minutes on, and then off, continuously for the first 72hours. After the first 72hrs, you can just use Tylenol or ibuprofen when you have pain. If you are taking narcotic pain medication, follow the instructions on the label and do not drive. Pain medications can make you very constipated. Make sure you are moving your bowels daily. If not, take Miralax, m ilk of magnesia or magnesium citrate. Anesthesia makes you very constipated. Take a dose of milk of magnesia the morning after surgery. ? Use an ice bag for the first 72 hours. This helps to decrease swelling, which causes pain. It is normal to be more sore/painful and swollen towards the end of the day and first thing in the morning. ? Use milk of magnesia or prune juice to prevent constipation (this is a particular side effect of pain medication and anesthesia). Do not allow yourself to become constipated. ? Start out eating very small, bland amounts of food. Do not take pain pills on an empty stomach. - You will notice purple discoloration around the incisions. This is the ?skin glue?. This will wear off on its own. It is OK to shower after 24hrs. You do not need to cover the incisions. ? Do not go swimming or sit in a hot tub for two weeks. ? There are no stitches to remove. ? Do not drive your car x72hrs and then only if you have no pain and can move freely. Do not drive if you are taking pain narcotic pain medications. ? You may resume sexual activity whenever pain and soreness subside, usually in 2 weeks. ? Do no lift anything over 5 lbs. for two weeks. ? You may return to work in one week, or when you feel able, provided you do not have to do any heavy lifting or prolonged standing. ? You should return to Dr. Umaña?s office for a post-op appointment about one week after surgery. Please call the [facility] at: [phone] to schedule an appointment. My Medications for pain and nausea are: ibuprofen and ultram and skelaxin When to Call the Office: ? If the incision becomes red or swollen, or there is more than a little drainage from it. ? If you develop a temperature higher than 100.5 F. ? Vomiting and can?t keep fluids down Stand Alone Forms: Nursing Discharge Form Referrals: Richard Worley [Primary Care Provider] - 04/08/21 9:20 am Activity:: see above Remove Dressings/Wound Care:: 24 hours Shower/Bathe:: 24 hours Activity:: see above DS: Summary Time Spent with Patient providing and/or coordinating discharge services: Greater than 30 minutes Status at Discharge Functional status at discharge: independent ambulation Overall status at discharge: patient is progressing back to baseline Mental Status: mental status grossly normal Speech and Movement: speech and movement normal Mood: congruent mood Affect: normal affect Exam Psych Mental Status: mental status grossly normal Speech and Movement: speech and movement normal Mood: congruent mood Affect: normal affect DS: Data Vitals/I&O Vitals and I&O: Vital Signs Temperature 36.8 C 04/01/21 07:46 Temperature Source Tympanic 04/01/21 07:46 Pulse 78 04/01/21 07:46 Pulse Rhythm Regular 03/31/21 21:25 Respiratory Rate 16 04/01/21 07:46 Respiratory Effort Non-Labored 03/31/21 21:25 Respiratory Depth Shallow 03/31/21 21:25 Respiratory Pattern Normal 03/31/21 21:25 Blood Pressure 113/78 04/01/21 07:46 Blood Pressure Position Sitting 03/31/21 15:33 Pulse Oximetry 97 04/01/21 07:46 Respiratory End-tidal CO2 42 03/31/21 21:07 Oxygen Delivery Method Room Air 04/01/21 07:46 Oxygen Flow Rate 0 04/01/21 07:46 Pain Level 4 04/01/21 08:54 Intake & Output 03/31/21 03/31/21 04/01/21 11:59 23:59 11:59 Intake Total 1360 / 1360 421.25 / 421.25 Output Total 425 / 425 300 / 300 Balance 935 / 935 121.25 / 121.25 Weight 86.183 kg Intake: IV 1360 / 1360 421.25 / 421.25 Output: Urine 425 / 425 300 / 300 Other: Urine Color Yellow Light Arpita Urine Appearance Clear Clear Urine Odor Normal Emesis Description None Voiding Methods Toilet Data Completed and Pending Labs on day of discharge: Labs from last 24 hours 03/31/21 03/31/21 03/31/21 18:25 15:50 15:50 WBC 15.14 H RBC 5.61 Hgb 17.2 Hct 48.8 MCV 87.0 MCH 30.7 MCHC 35.2 RDW 11.8 Plt Count 219 MPV 10.9 Immature Gran % 0.4 Neutrophils % 88.5 Lymphocytes % 6.0 Monocytes % 4.6 Eosinophils % 0.2 Basophils % 0.3 Nucleated RBC % 0 Absolute Neutrophils 13.40 H Absolute Lymphocytes 0.91 L Absolute Monocytes 0.70 Absolute Eosinophils 0.03 Absolute Basophils 0.05 Sodium 142 Potassium 4.2 Chloride 104 Carbon Dioxide 28.1 Anion Gap 9.9 BUN 17 Creatinine 1.4 H Estimated GFR/1.73 m2 56.42 Glucose 107 H Calcium 9.1 Total Bilirubin 1.1 H AST 16 ALT 18 Alkaline Phosphatase 66 Total Protein 7.9 Albumin 4.4 Lipase 65 Urine Color Urine Clarity Urine pH Ur Specific [place] Urine Protein Urine Ketones Urine Blood Urine Nitrite Urine Bilirubin Urine Urobilinogen Ur Leukocyte Esterase Urine Glucose COVID-19 Source Nasal/nares SARS-CoV-2 (PCR) Negative 03/31/21 15:48 WBC RBC Hgb Hct MCV MCH MCHC RDW Plt Count MPV Immature Gran % Neutrophils % Lymphocytes % Monocytes % Eosinophils % Basophils % Nucleated RBC % Absolute Neutrophils Absolute Lymphocytes Absolute Monocytes Absolute Eosinophils Absolute Basophils Sodium Potassium Chloride Carbon Dioxide Anion Gap BUN Creatinine Estimated GFR/1.73 m2 Glucose Calcium Total Bilirubin AST ALT Alkaline Phosphatase Total Protein Albumin Lipase Urine Color Yellow Urine Clarity Clear Urine pH 6.0 Ur Specific [place] >= 1.030 H Urine Protein Negative Urine Ketones >=160 H Urine Blood Negative Urine Nitrite Negative Urine Bilirubin Small H Urine Urobilinogen 0.2 Ur Leukocyte Esterase Negative Urine Glucose Negative COVID-19 Source SARS-CoV-2 (PCR) [facility] Family History (Updated 05/28/20 @ 17:46 by Deepali Robbins) Mother Depression Father High cholesterol Sister No problems noted. Maternal Grandfather , 82 Alcohol abuse Depression Paternal Grandfather , 57 Alcohol abuse Esophageal cancer Maternal Grandmother Depression Hyperlipidemia Paternal Grandmother No problems noted. Son No problems noted. Social History Smoking/Tobacco Use Status: Never Smoking risk assessment performed?: Yes Alcohol Intake: current Alcohol Intake frequency: 0-2 drinks per day Alcohol type: beer, wine and hard liquor Drug use: Never Substance use type: does not use Caregiver/Support person: No Household members: spouse and children Housing: house Communication Needs: Corrective Lenses Do you need help understanding health information?: Never Pets and animals: Yes Pets and animals: dog(s) Sexually active: Yes Do you think of yourself as: straight/heterosexual Current gender identity: male What is your relationship status?: How often do you talk on the phone with friends or family?: twice per week How often do you get together with friends or relatives?: once per week Do you belong to any clubs or organized social groups?: no Panel score (0-1 are the most socially isolated patients): 2 What type of physical activity do you participate in: none Dulce/Jewish: None Special dulce needs: No Seatbelt use: always Helmet use: Yes Helmet use: always Drive intox or ride w/intox mobile lounge driver or operator: No Do you feel safe at home: Yes Do you feel safe in your relationship?: Yes
[2021-04-01 15:16] VITALS: BP 118/76; PULSE 70; RESP 16; TEMP 36.8; O2SAT 98
[2021-04-01] MEDS: Mylanta Suspension 30 ML CUP PO (16:15)
== END 2021-04-01 18:25 | disposition home or self-care (01) | DRG 343 ==
LOC: ER 21:12 → MS 21:52 → SUR 04-01 10:11
PROVIDERS: Physician Assistant; Admitting Provider Surgery; Emergency Provider Physician Assistant; PCP Family Medicine; Visit Provider Surgery
PROC: 0DTJ4ZZ Resection of Appendix, Percutaneous Endoscopic Approach (ICD-10-PCS; CPT 44970; principal; 2021-03-31 19:00)
DX: K35.80 Unspecified acute appendicitis (principal); Z20.822 Contact with and (suspected) exposure to COVID-19
CPT/HCPCS: 44970; 36415; 80053; 83690; 87635; 96361; 96365; 96375; 99285; 74177; 81003; 85025; 88304; J0131; J1100; J1885; J2001; J2270; J2405; J2543; J3490

== ENCOUNTER 2022-11-10 14:50 | Outpatient (CLI) | payer BC, SELFPAY ==
--- NOTE | 2022-11-10 12:30 | DI.RAD_ITS ---
Exam(s) XR LUMBAR SPINE COMPLETE EXAM: XR LUMBAR SPINE COMPLETE CLINICAL HISTORY: chronic low back pain,M54.50. TECHNIQUE: 2D digital imaging was performed. Five views. COMPARISON: No exams were available for comparison FINDINGS: BONES: No fracture or destructive lesion. Vertebral body heights are maintained. Minimal endplate os teophytes. No facet hypertrophy identified. SI joints are unremarkable. Visualized portions of hi p joints also appear normal. DISKS: Intervertebral disc spaces are maintained. ALIGNMENT: Lumbar spinal alignment is within normal limits. SOFT TISSUE: Suture material right side of abdomen. Bowel gas pattern unremarkable. IMPRESSION: Minimal degenerative changes. DATA REPOSITORY: RADIATION DOSE DELIVERED:
== END 2022-11-10 15:10 ==
PROVIDERS: PCP Family Medicine; Visit Provider Family Medicine
DX: M54.59 Other low back pain (principal); G89.29 Other chronic pain; M25.78 Osteophyte, vertebrae
CPT/HCPCS: 72110

== ENCOUNTER 2022-11-11 02:37 | Outpatient (CLI) | payer BC, SELFPAY ==
[2022-11-11 10:43] LABS: BUN 25 mg/dL (7-18); CREATININE 1.3 mg/dL (0.70-1.30); Calcium 9.8 mg/dL (8.5-10.1); Calculated LDL 136 mg/dL (<100); Chloride 102 mmol/L (98-107); Cholesterol 207 mg/dL (<200); Estimated GFR 71.22 (mL/min/1.73m2); Glucose 94 mg/dL (74-106); HDL Cholesterol 64 mg/dL (40-60); Potassium 4.3 mmol/L (3.5-5.1); Sodium 138 mmol/L (136-145); Triglyceride 36 mg/dL (<150)
[2022-11-12 09:03] LABS: Hepatitis C Ab w Rflx HCV PCR Negative (Negative)
== END 2022-11-11 02:38 | disposition home or self-care (01) ==
LOC: LBO 02:37
PROVIDERS: PCP Family Medicine; Visit Provider Family Medicine
DX: Z00.00 Encounter for general adult medical examination without abnormal findings (principal); I10 Essential (primary) hypertension; Z11.59 Encounter for screening for other viral diseases
CPT/HCPCS: 36415; 80048; 80061; 86803

== ENCOUNTER 2025-01-08 11:47 | Outpatient (CLI) | payer BC, SELFPAY ==
--- NOTE | 2025-01-08 09:30 | DI.RAD_ITS ---
Exam(s) XR SHOULDER LT COMPLETE 2+V EXAM: XR SHOULDER LT COMPLETE 2+V CLINICAL HISTORY: Shoulder trauma fall, S49.92XA. TECHNIQUE: 2D digital imaging was performed. Three views. COMPARISON: No exams were available for comparison FINDINGS: BONES: No acute fracture is present. No bony destructive lesion is seen. JOINTS: No dislocation present. Mild spurring at the inferior AC joint. Mild spurring at the glenoi d. Glenohumeral joint is maintained. SOFT TISSUE: Normal. IMPRESSION: Mild degenerative changes. DATA REPOSITORY: RADIATION DOSE DELIVERED:
== END 2025-01-08 12:07 ==
LOC: DI 11:47
PROVIDERS: PCP Family Medicine; Visit Provider Nurse Practitioner Family
DX: S49.92XA Unspecified injury of left shoulder and upper arm, initial encounter (principal); X58.XXXA Exposure to other specified factors, initial encounter
CPT/HCPCS: 73030